=== PATIENT | male | born 1935 | race Caucasian/White ===

== ENCOUNTER 2021-07-12 13:24 | Inpatient (IN) | payer OTHER, BC ==
--- OUTSIDE RECORDS SUMMARY | 2021-07-12 13:27 | XMS REPORT | Continuity of Care Document ---
:1935 Author Organization Formerly [facility] t Address [address] [place] [address] Care Team Providers Name Role Phone MARCELA Attending Clinician Unavailable LUIS Attending Clinician Unavailable Payers Payer Name Policy Type Policy Number Effective Date Expiration Date S rosemarie [facility] [id number] 2015 00:00:00 2024 00:00:00 Problems This patient has no known problems. Allergies, Adverse Reactions, Alerts This patient has no known allergies or adverse reactions. Medications This patient has no known medications. Procedures This patient has no known procedures. Encounters Start End Encounter Admission Attending Care Care Encounter Source Date/Time Date/Time Type Type Clinicians Facility Department ID 2021-06[facility]11 [id number] [place] 09[place]:52 [facility] 2021-03-26 Outpatient MARCELA [facility] [id number] [place] 11:09:33 [facility] 2021-03-25 Outpatient LUIS [facility] [id number] [place] 10:46:10 [facility] 2021-06-26 2021-06-26 Outpatient [facility] [id number] [facility] 11:30:00 11:30:00 2021-06-19 2021-06-19 Outpatient [facility] MED [id number] [facility] 11:27:00 11:27:00 2021-06-13 2021-06-13 Office DONNIE Zaragoza 6400 [id number] 09:35:25 10:26:58 Visit Susan SAM [id number] 2021-04-03 2021-04-03 Outpatient [id number] [facility] 09:04:00 09:04:00 2021-03-28 2021-03-28 Outpatient [facility] [id number] [facility] 14:56:00 14:56:00 2021-03-25 2021-03-25 Office DONNIE Zaragoza 6400 [id number] 09:45:00 10:00:00 Visit Genarojadejuanita PALACIOSN [id number] 2020-12-12 2020-12-12 Outpatient [facility] [id number] [facility] 11:51:00 11:51:00 2020-08-01 2020-08-01 Outpatient [facility] [id number] [facility] 13:44:00 13:44:00 2020-07-02 2020-07-02 Outpatient [facility] [id number] [facility] 12:24:00 12:24:00 Results This patient has no known results.
[2021-07-12 15:44] LABS: Absolute Lymphocytes (CBC) 0.4 K/uL (0.7-4.9); Basophils % 0.3 % (0-1.3); Hematocrit 39.3 % (39.6-49.0); Lymphocytes % 2.4 % (15.3-44.8); MPV 7.9 fL (7.6-11.3); RBC Red Blood Cell Count 3.97 M/uL (4.33-5.43)
[2021-07-12 15:49] LABS: Protime INR 1.34
--- NOTE | 2021-07-12 15:52 | RAD REPORT ---
EXAM DESCRIPTION: RAD - Chest Single View - 07/12/2021 3:23 pm CLINICAL HISTORY: difficulty walking COMPARISON: None TECHNIQUE: AP portable chest image was obtained 07/12/2021 3:23 pm . FINDINGS: Lungs are clear. Lung volumes are low. Scarring or linear atelectasis seen in the lower le ft lung field. Two lead left subclavian pacemaker is present. Heart and vasculature are normal. No me asurable pleural effusion and no pneumothorax. No acute bony abnormality seen. No acute aortic findin gs suspected. IMPRESSION: No acute cardiopulmonary process.
--- NOTE | 2021-07-12 16:16 | RAD REPORT ---
EXAM DESCRIPTION: CT - Head Brain Wo Cont - 07/12/2021 3:50 pm CLINICAL HISTORY: difficulty walking COMPARISON: No comparison imaging available. The report from an outside MRI dated 03/28/2021 was rev iewed. TECHNIQUE: Axial 5 mm thick images of the head were obtained without IV contrast. All CT scans are performed using dose optimization technique as appropriate and may include automated exposure control or mA/KV adjustment according to patient size. FINDINGS: No intracranial hemorrhage is present. Moderate atrophy and chronic ischemic changes are p resent. Ventricles are in proportion to the amount of volume loss. In the left parietal region there is a 4.0 centimeter solid mass lesion that is dural-based. Overlying left parietal craniotomy changes are present. Patient has a known meningioma. The report indicates a 3 centimeter size. The [address] dimension on today's study does not necessarily represent growth over the short interval. Size me asurements very on the modality utilized and the plane of measurement. Growth should not be assumed. There is significant left parietal and posterior frontal vasogenic edema. This is grossly similar to the description on the outside report. No midline shift. No acute cortical based infarction. No abnormal extra-axial fluid collections. 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 That mass cannot be adequately evaluated or celine red on a noncontrast CT study. Mastoid air cells and visualized portions of the paranasal sinuses are clear. No acute bony findings. IMPRESSION: No hemorrhage, midline shift or other emergent intracranial finding. 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 Maximum dimension is 4 cm on today's s tudy with outside report indicating 3 cm. However, interval growth cannot be assumed. Different imagi ng modalities and different planes of measurement can account for this differential. 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 That particular mass cannot be evaluated accurate ly on noncontrast CT imaging.
[2021-07-12 16:18] LABS: ALT/SGPT 43 U/L (12-78); Albumin 3.1 g/dL (3.4-5.0); Alkaline Phosphatase 67 U/L (45-117); BUN Blood Urea Nitrogen 104 mg/dL (7-18); Bicarbonate 18 mmol/L (21-32); Bilirubin Direct 0.1 mg/dL (0-0.2); Bilirubin Total 0.5 mg/dL (0.2-1.0); Glucose Level 105 mg/dL (74-106); NT PRO-BNP 1758 pg/mL (<450); Protein, Total 6.9 g/dL (6.4-8.2); Sodium Level 134 mmol/L (136-145); Troponin (Emerg Dept Use Only) < 0.02 ng/mL (0.0-0.045)
[2021-07-12 16:21] LABS: AST/SGOT 20 U/L (15-37); Magnesium 2.7 mg/dL (1.8-2.4); Potassium 4.4 mmol/L (3.5-5.1)
[2021-07-12] MEDS ORDERED: NA CHLORIDE 0.9% 3,000 ML ONE (16:45)
[2021-07-12] MEDS ORDERED: CEFTRIAXONE/SWI 1gm 1 GM/10 ML SYR ONE (17:33)
[2021-07-12 17:47] LABS: Blood Morphology Comment NOT SEEN (NOT SEEN); Platelet Estimate ADEQ
--- NOTE | 2021-07-12 17:48 | ER ---
Nurse's Notes [facility] Name: Aj Sears Age: 86 yrs Sex: Male : 1935 Arrival Date: 07/12/2021 Time: 14:25 Bed 8 Private MD: Diagnosis: Dehydration;Acute kidney failure, unspecified Presentation: 07/12 14:55 Ebola Screen: Patient denies travel to an Ebola-affected area in the 21 days before ll1 illness onset. 14:55 Method Of Arrival: [facility] 1 14:55 Acuity: GERARDO 3 ll1 14:56 Chief complaint: Patient states: Unable to walk well or get up from toilet since around ll1 noon today. Was using walker earlier in the day for his neurologist appointment this am. No pain or falls. Coronavirus screen: Client denies travel out of the [place] in the last 14 days. At this time, the client does not indicate any symptoms associated with coronavirus-19. Initial Sepsis Screen: Does the patient meet any 2 criteria? No. Patient's initial sepsis screen is negative. Does the patient have a suspected source of infection? No. Patient's initial sepsis screen is negative. Risk Assessment: Do you want to hurt yourself or someone else? Patient reports no desire to harm self or others. Onset of symptoms was July 12, 2021. 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 - Social history:: Smoking status: Patient denies any tobacco usage or history of. Smoking status: . Screenin:35 Abuse screen: Denies threats or abuse. Nutritional screening: No deficits noted. em Tuberculosis screening: No symptoms or risk factors identified. Fall Risk None identified. Assessment: 19:35 General: Appears in no apparent distress. uncomfortable, Behavior is calm, cooperative, em appropriate for age. Pain: Complains of pain in buttocks. Neuro: Level of Consciousness is awake, alert, obeys commands, Oriented to person, place, time, situation. Cardiovascular: Capillary refill < 3 seconds Patient's skin is warm and dry. Respiratory: Airway is patent Respiratory effort is even, unlabored, Respiratory pattern is regular, symmetrical. GI: Reports diarrhea. Derm: Skin is thin, Skin is pink, warm \T\ dry. Musculoskeletal: Range of motion: intact in all extremities. 21:20 Reassessment: Reassessment: BP 72/41, hospitalist notified. em 23:45 Reassessment: initiated Levophed at 5 mcg/min. em Vital Signs: 15:01 Weight 86.18 kg; Height 5 ft. 9 in. (175.26 cm); Pain 0/10; ll1 15:04 Pulse 75; Resp 18; Temp 97.4; Pulse Ox 98% ; ll1 16:15 BP 138 / 60; ll1 20:42 BP 99 / 54; Pulse 95; Resp 78; Pulse Ox 100% on R/A; em 21:12 BP 88 / 45; Pulse 92; Resp 18; Pulse Ox 99% on R/A; em 21:20 BP 72 / 41; Pulse 94; Resp 20; Pulse Ox 99% on R/A; em 21:30 BP 97 / 69; Pulse 91; Resp 16; Pulse Ox 100% on R/A; em 22:02 Temp 98.3(R); em 22:30 BP 78 / 42; em 15:01 Body Mass Index 28.06 (86.18 kg, 175.26 cm) ll1 ED Course: 14:25 Patient arrived in ED. eb 14:54 Arturo Hester PA is PHCP. cp 14:54 Per Baumann MD is Attending Physician. cp 14:55 Ramya Bower, MICHAEL is Primary Nurse. ll1 14:55 Arm band placed on Patient placed in an exam room, on a stretcher. ll1 14:56 Triage completed. ll1 15:23 XRAY Chest (1 view) In Process Unspecified. EDMS 15:42 CT Head Brain wo Cont In Process Unspecified. EDMS 17:47 Hector Soto is Hospitalizing Provider. cp 18:30 CT Abd/Pelvis - Without Contrast In Process Unspecified. EDMS 19:35 Patient has correct armband on for positive identification. Adult w/ patient. em 23:45 Assisted provider with central line placement. Set up central line tray. Triple lumen em line placed in right internal jugular. Line placed by Shravan Gunter MD Placement verified by CXR, Dressed with Tape, Tegaderm, Patient tolerated well. 07/13 03:03 Chest Single View XRAY Sent. bs2 03:04 Stool Culture Sent. bs2 03:04 Rotavirus Antigen Sent. bs2 03:04 CDIFF Sent. bs2 03:05 Rotavirus Antigen Sent. bs2 03:05 Stool Culture Sent. bs2 03:06 Basic Metabolic Panel Sent. bs2 03:06 CBC with Diff Sent. bs2 21:39 Primary Nurse role handed off by Ramya Bower RN tt3 07/14 07:10 Shelton Nicholas, RN is Primary Nurse. [facility] 07/15 19:15 Primary Nurse role handed off by Shelton Nicholas, RN mw2 Administered Medications: 07/12 17:02 Discontinued: NS 0.9% (30 ml/kg) 30 ml/kg IV at bolus once; Sepsis Protocol cp 16:36 Drug: NS 0.9% (30 ml/kg) 30 ml/kg Route: IV; Rate: bolus; Site: right antecubital; [facility] 16:36 Drug: NS 0.9% 1000 ml Route: IV; Rate: 1 bolus; Site: right antecubital; [facility] 18:09 Follow up: Response: No adverse reaction; IV Status: Completed infusion; IV Intake: ll1 1000ml 17:50 Drug: NS 0.9% 1000 ml Route: IV; Rate: 75 ml/hr; Site: right antecubital; [facility] 07/13 03:05 Follow up: IV Status: Infusion continued upon admission [facility] 07/12 18:44 Drug: Rocephin (cefTRIAXone) 1 grams Route: IV; Rate: calculated rate; Site: right ll1 antecubital; 07/13 03:05 Follow up: IV Status: Completed infusion [facility] 07/12 21:15 Drug: Tylenol 650 mg Route: PO; em 07/13 00:24 Follow up: Response: No adverse reaction; Marked relief of symptoms em 07/12 21:35 Drug: NS 0.9% 250 ml Route: IV; Rate: bolus; Site: right antecubital; em 07/13 00:24 Follow up: IV Status: Completed infusion; IV Intake: 250ml em 07/12 23:45 Drug: Levophed (norepinephrine) (4 mg/250 mL D5W 4 mcg/min Route: IV; Rate: calculated em rate; Site: right antecubital; 07/13 03:04 Follow up: IV Status: Infusion continued upon admission bs2 Intake: 07/12 18:09 IV: 1000ml; Total: 1000ml. ll1 07/13 00:24 IV: 250ml; Total: 1250ml. em Outcome: 07/12 17:48 Decision to Hospitalize by Provider. cp 07/15 20:10 Patient left the ED. em Signatures: Dispatcher [employer] EDKieran Anderson RN RN em Arturo Hester PA PA cp Jon King mw2 Vianney Rodriguez Lynsay RN RN ll1 Damian Gupta tt3 Jami Howard RN RN bs2 Shelton Nicholas RN RN ch5
--- NOTE | 2021-07-12 17:49 | EDPHYS ---
Physician Documentation [facility] Name: Aj Sears Age: 86 yrs Sex: Male : 1935 Arrival Date: 07/12/2021 Time: 14:25 Bed 8 Private MD: ED Physician ePr Baumann HPI: 07/12 15:10 This 86 yrs old Male presents to ER via EMS with complaints of Weakness. cp 15:10 The patient's problem is reported as weakness, that is generalized. cp 15:10 Onset: The symptoms/episode began/occurred gradually, and became worse today, EMS cp reports patient was sitting on commode and unable to stand up. Associated signs and symptoms: Pertinent negatives: abdominal pain, chest pain, diaphoresis, headache, vomiting. Severity of symptoms: in the emergency department the symptoms are unchanged despite EMS interventions. Patient's baseline: Neuro: alert and fully oriented, Motor: no deficits, Ambulation: walks with assist only, uses cane, uses walker, Speech: normal. 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 - Social history:: Smoking status: Patient denies any tobacco usage or history of. Smoking status: . ROS: 15:15 Constitutional: Positive for poor PO intake, Negative for body aches, chills, fever. cp 15:15 Cardiovascular: Negative for chest pain. cp 15:15 Eyes: Negative for injury, pain, redness, and discharge. cp 15:15 Respiratory: Negative for cough, shortness of breath, wheezing. 15:15 Abdomen/GI: Negative for abdominal pain, vomiting, diarrhea, constipation. 15:15 Neuro: Positive for weakness, Negative for altered mental status, headache, syncope. 15:15 All other systems are negative. Exam: 15:20 Constitutional: The patient appears in no acute distress, alert, awake, cp non-diaphoretic, non-toxic, well developed, well nourished. 15:20 Head/Face: Normocephalic, atraumatic. cp 15:20 Eyes: Periorbital structures: appear normal, Pupils: equal, round, and reactive to light and accomodation, Extraocular movements: intact throughout, Conjunctiva: normal, no exudate, no injection, Sclera: no appreciated abnormality, Lids and lashes: appear normal, bilaterally. 15:20 ENT: External ear(s): are unremarkable, Nose: is normal, Mouth: Lips: moist, Oral mucosa: moist, Posterior pharynx: Airway: no evidence of obstruction, patent. 15:20 Neck: ROM/movement: is normal, is supple, without pain, no range of motions limitations, no meningismus, no nuchal rigidity. 15:20 Chest/axilla: Inspection: normal, Palpation: is normal, no crepitus, no tenderness. 15:20 Cardiovascular: Rate: normal, Rhythm: regular, Edema: ankle edema, that is mild, JVD: is not appreciated. 15:20 Respiratory: the patient does not display signs of respiratory distress, Respirations: normal, no use of accessory muscles, no retractions, labored breathing, is not present, Breath sounds: are clear throughout, no decreased breath sounds, no stridor, no wheezing. 15:20 Abdomen/GI: Inspection: stoma noted RLQ, Bowel sounds: active, all quadrants, Palpation: abdomen is soft and non-tender, in all quadrants. 15:20 Skin: erythema noted to buttocks. 15:20 Neuro: Orientation: to person, place \T\ time. Mentation: able to follow commands, slow to respond, Motor: strength is 5/5 in the right arm and left arm, strength is 4/5 in the right leg and left leg, Sensation: is normal. 16:08 ECG was reviewed by the Attending Physician. cp Vital Signs: 15:01 Weight 86.18 kg; Height 5 ft. 9 in. (175.26 cm); Pain 0/10; ll1 15:04 Pulse 75; Resp 18; Temp 97.4; Pulse Ox 98% ; ll1 16:15 BP 138 / 60; ll1 20:42 BP 99 / 54; Pulse 95; Resp 78; Pulse Ox 100% on R/A; em 21:12 BP 88 / 45; Pulse 92; Resp 18; Pulse Ox 99% on R/A; em 21:20 BP 72 / 41; Pulse 94; Resp 20; Pulse Ox 99% on R/A; em 21:30 BP 97 / 69; Pulse 91; Resp 16; Pulse Ox 100% on R/A; em 22:02 Temp 98.3(R); em 22:30 BP 78 / 42; em 15:01 Body Mass Index 28.06 (86.18 kg, 175.26 cm) ll1 MDM: 15:00 Patient medically screened. 07/12 15:03 Order name: Basic Metabolic Panel 07/12 15:03 Order name: CBC with Diff 07/12 15:03 Order name: LFT's; Complete Time: 16:30 07/12 16:30 Interpretation: Normal except: ALB 3.1; GLOB 3.8; A/G 0.8. 07/12 15:03 Order name: Magnesium; Complete Time: 16:30 07/12 16:32 Interpretation: Abnormal: MG 2.7. 07/12 15:03 Order name: NT PRO-BNP; Complete Time: 16:30 07/12 15:03 Order name: PT-INR; Complete Time: 16:10 07/12 15:03 Order name: Troponin (emerg Dept Use Only); Complete Time: 16:30 07/12 15:03 Order name: Procalcitonin; Complete Time: 16:54 07/12 15:03 Order name: Lactate; Complete Time: 16:10 07/12 16:11 Interpretation: Abnormal: LAC 3.1. 07/12 15:03 Order name: Urine Microscopic Only 07/12 15:03 Order name: Blood Culture Adult (2) 07/12 15:04 Order name: Basic Metabolic Panel; Complete Time: 16:30 EDMS 07/12 16:31 Interpretation: Normal except: NA 134; CO2 18; BUN 104; CRE 2.04; GFR 31. cp 07/12 15:04 Order name: CBC with Automated Diff; Complete Time: 18:16 EDMS 07/12 15:59 Interpretation: Normal except: WBC 15.80; RBC 3.97; HGB 13.3; HCT 39.3; RDW 17.7; CHERYL% cp 91.4; LYM% 2.4; NEUT A 14.4; LYMA 0.4. 07/12 17:04 Order name: Stool Culture 07/12 17:04 Order name: Rotavirus Antigen 07/12 17:04 Order name: CDIFF 07/12 17:05 Order name: Stool Culture EDMS 07/12 17:05 Order name: Rotavirus Antigen EDMS 07/12 17:47 Order name: Manual Differential; Complete Time: 18:16 EDMS 07/12 18:26 Order name: Urine Dipstick-Ancillary EDMS 07/12 19:10 Order name: Urine Culture EDMS 07/12 20:45 Order name: SARS-COV-2 RT PCR EDMS 07/13 00:55 Order name: Lactate Sepsis 2 HR Follow-up EDMS 07/13 02:37 Order name: Troponin I EDMS 07/13 02:47 Order name: C-Reactive Protein EDMS 07/13 06:15 Order name: CBC with Automated Diff EDMS 07/13 06:17 Order name: Lactate EDMS 07/13 06:22 Order name: Basic Metabolic Panel EDMS 07/13 06:22 Order name: Phosphorus EDMS 07/12 15:03 Order name: CT Head Brain wo Cont; Complete Time: 16:30 cp 07/12 15:03 Order name: XRAY Chest (1 view); Complete Time: 15:59 cp 07/12 17:06 Order name: CT Abd/Pelvis - Without Contrast cp 07/13 00:26 Order name: Chest Single View XRAY em 07/13 06:22 Order name: Magnesium EDMS 07/13 06:24 Order name: Troponin I EDMS 07/13 12:18 Order name: Glucose, Ancillary Testing EDMS 07/13 15:53 Order name: Gram Stain--Aerobic Bottle EDMS 07/13 17:30 Order name: ABG Arterial Blood Gas EDMS 07/14 03:06 Order name: CBC with Automated Diff EDMS 07/14 03:16 Order name: Lactate EDMS 07/14 03:22 Order name: Basic Metabolic Panel EDMS 07/14 03:22 Order name: Phosphorus EDMS 07/14 03:22 Order name: Magnesium EDMS 07/14 08:33 Order name: Glucose, Ancillary Testing EDMS 07/14 18:14 Order name: Vancomycin Level Trough EDMS 07/14 21:16 Order name: Glucose, Ancillary Testing EDMS 07/15 05:08 Order name: Basic Metabolic Panel EDMS 07/15 05:08 Order name: Phosphorus EDMS 07/15 05:08 Order name: Magnesium EDMS 07/15 05:10 Order name: Lactate EDMS 07/15 05:16 Order name: CBC with Automated Diff EDMS 07/15 07:03 Order name: Ur Protein EDMS 07/15 07:05 Order name: UR POTASSIUM EDMS 07/15 07:05 Order name: UR SODIUM EDMS 07/15 07:17 Order name: Osmolality, Urine EDMS 07/15 08:05 Order name: Glucose, Ancillary Testing EDMS 07/15 08:40 Order name: RAD EDMS 07/12 15:03 Order name: EKG; Complete Time: 15:04 cp 07/12 15:03 Order name: Cardiac monitoring; Complete Time: 15:33 cp 07/12 15:03 Order name: EKG - Nurse/Tech; Complete Time: 15:35 cp 07/12 15:03 Order name: IV Saline Lock; Complete Time: 15:33 cp 07/12 15:03 Order name: Labs collected and sent; Complete Time: 15:33 cp 07/12 15:03 Order name: O2 Per Protocol; Complete Time: 15:33 cp 07/12 15:03 Order name: O2 Sat Monitoring; Complete Time: 15:33 cp EC:08 Rate is 84 beats/min. Rhythm is irregular. QRS interval is normal. QT interval is cp normal. T waves are Inverted in lead aVL. Interpreted by me. Reviewed by me. Administered Medications: 17:02 Discontinued: NS 0.9% (30 ml/kg) 30 ml/kg IV at bolus once; Sepsis Protocol cp 16:36 Drug: NS 0.9% (30 ml/kg) 30 ml/kg Route: IV; Rate: bolus; Site: right antecubital; [facility] 16:36 Drug: NS 0.9% 1000 ml Route: IV; Rate: 1 bolus; Site: right antecubital; [facility] 18:09 Follow up: Response: No adverse reaction; IV Status: Completed infusion; IV Intake: ll1 1000ml 17:50 Drug: NS 0.9% 1000 ml Route: IV; Rate: 75 ml/hr; Site: right antecubital; [facility] 07/13 03:05 Follow up: IV Status: Infusion continued upon admission 2 07/12 18:44 Drug: Rocephin (cefTRIAXone) 1 grams Route: IV; Rate: calculated rate; Site: right 1 antecubital; 07/13 03:05 Follow up: IV Status: Completed infusion bs2 07/12 21:15 Drug: Tylenol 650 mg Route: PO; em 07/13 00:24 Follow up: Response: No adverse reaction; Marked relief of symptoms em 07/12 21:35 Drug: NS 0.9% 250 ml Route: IV; Rate: bolus; Site: right antecubital; em 07/13 00:24 Follow up: IV Status: Completed infusion; IV Intake: 250ml em 07/12 23:45 Drug: Levophed (norepinephrine) (4 mg/250 mL D5W 4 mcg/min Route: IV; Rate: calculated em rate; Site: right antecubital; 07/13 03:04 Follow up: IV Status: Infusion continued upon admission bs2 Disposition Summary: 07/12/21 17:48 Hospitalization Ordered Hospitalization Status: Inpatient Admission cp Provider: Hector Soto cp Condition: Stable cp Problem: new cp Symptoms: have improved cp Bed/Room Type: Standard cp Location: [facility] ER HOLD(07/12/21 22:56) Room Assignment: ERHOLD-(07/12/21 22:56) bb Diagnosis - Dehydration cp - Acute kidney failure, unspecified cp Forms: - Medication Reconciliation Form cp - SBAR form cp Addendum: 07/17/2021 10:05 Co-signature as Attending Physician, Per Baumann MD I agree with the assessment and k dr plan of care. Signatures: Dispatcher [employer] EDMS Vita Garrison RN RN Per Baumann MD MD [facility] Kieran Chen RN RN Tiffanie Hdz RN RN bb Arturo Hester PA PA Ramya Bower RN RN ll1 Jami Howard RN bs2 Corrections: (The following items were deleted from the chart) 07/12 19:34 16:19 CORONAVIRUS+MR.LAB.BRZ ordered. EDMS EDMS 21:15 17:48 cp 22:56 17:48 Telemetry/MedSurg (Inpatient) cp 22:56 21:15 212 mw 07/13 01:14 01:13 This 86 yrs old Male presents to ER via EMS with complaints of cp Weakness. cp
[2021-07-12 18:26] LABS: Urine Blood 3+ (Negative); Urine Glucose Negative (Negative); Urine Protein 3+ (Negative); Urine Specific Gravity 1.015 (1.005-1.030)
--- NOTE | 2021-07-12 18:58 | RAD REPORT ---
EXAM DESCRIPTION: CT - Abdomen Pelvis Wo Contrast - 07/12/2021 6:29 pm CLINICAL HISTORY: diarrhea;Abd pain COMPARISON: No comparisonsNo comparisons TECHNIQUE: Axial [address] imaging of the abdomen and pelvis was performed without IV contrast. No IV contrast was given because of allergy, abnormal renal function, patient refusal or physician re quest. No oral contrast administered. All CT scans are performed using dose optimization technique as appropriate and may include automated exposure control or mA/KV adjustment according to patient size. FINDINGS: No suspicious findings in the lung bases. The liver, spleen and pancreas show no suspicious findings on non-contrast imaging. Gallbladder and b iliary tree are also without suspicious finding. A 5.5 cm cyst is present upper pole right kidney. Mild to moderate hydronephrosis of the right renal pelvis present with mild dilatation of the right ureter. Right ureteral stent is in place. There is n o left-sided hydronephrosis. No obstructing or nonobstructing calculi identified. No significant adr enal finding. Isodense renal masses and pyelonephritis cannot be excluded in the absence of IV contra st. Urinary bladder has been resected. 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 There is a 7-8 centimeter diameter hernia at the ostomy site with herniated loops of small bowel. No stomach or small bowel abnormality. There is a moderately large volume of solid stool filling the entirety of the colon. Left-sided colonic stool is hyperdense suggesting the presence of contrast mat erial. It is believed the patient has normal bowel movements per rectum. A colostomy site was not see n in the right mid abdomen. No acute colon process identifiable. No free air, free fluid or inflammatory stranding. No mass or bulky lymphadenopathy. Small fat fille d left inguinal hernia present. Disc and bone degenerative changes are present. Dense arterial tree calcifications are seen. 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 This may be posttraumatic or postsurgical. Patient has numerous surgical clips along the pelvic floor. IMPRESSION: Non-contrast enhanced CT abdomen and pelvis imaging show no acute or emergent finding. Nonacute findings are detailed in the body of the report. Full assessment is limited is the absence of IV contrast.
[2021-07-12 19:09] LABS: Urine Bacteria LOADED /HPF (NONE SEEN); Urine RBC >50 /HPF (NONE SEEN)
[2021-07-12] MEDS ORDERED: ACETAMINOPHEN 325 MG TABLET ONE (21:19)
[2021-07-12] MEDS ORDERED: NOREPINEPHRINE 4mg/D5W 250mL 4 MG/250 ML BAG IV ONE (22:49)
[2021-07-12] MEDS ORDERED: LIDOCAINE 1% MPF 5 ML VIAL ONE (23:21)
[2021-07-13] MEDS ORDERED: ONDANSETRON 4 MG/2 ML VIAL IV PRN (01:10)
[2021-07-13] MEDS ORDERED: NA CHLORIDE 0.9% 1,000 ML IV SCH ×2 (01:10→01:13)
[2021-07-13] MEDS ORDERED: CEFEPIME 1 GM/VIAL IV SCH (01:10)
[2021-07-13] MEDS ORDERED: CEFEPIME/SWI 1gm 10 ML IV SCH (01:10)
[2021-07-13] MEDS ORDERED: Pharmacy Consult 1 EA XX PRN (01:10)
--- NOTE | 2021-07-13 01:48 | P.HP ---
Certification for Inpatient Patient admitted to: Inpatient With expected LOS: >2 Midnights Patient will require the following post-hospital care: Home Health Services Practitioner: I am a practitioner with admitting privileges, knowledge of patient current condition, hospital course, and medical plan of care. Services: Services provided to patient in accordance with Admission requirements found in Title 42 Section 412.3 of the Code of Federal Regulations Patient History Date of Service: 07/12/21 Reason for admission: sepsis History of Present Illness: Mr. Sears is an 86 yo M with CHF (EF 35-40% 05/2021) s/p pacemaker, CAD, vestibular neuroma, prostate ca with urostomy here today for progressive weakness over the last week. Today at noon, he became so weak that family members and neighbor were not able to get him up so they called EMS. Symptoms were initially attributed to the vestibular neuroma but repeat scans show continued improvement and neurology signed off from that standpoint. Granddaughter reports that at baseline he is forgetful and uses a cane and walker, but recently he has declined. Currently lives with his daughter, but they think home health may be necessary. Before admission, patient's MAP began to decline and he flagged sepsis. Granddaughter says he has had frequent admissions for septic shock and required pressors in the past. Daughter says per his theology professor his baseline BP is around 110/60s, and his MAP goal is >65. ED placed central line and began levophed to maintain MAP >65. UA is positive for UTI, but per granddaughter his urologist says that his UAs have been like this since the placement of the stoma. WBC 15.8. NA 134, HCO3 18, BUN 104, Cr 2.04 (baseline 1.5), GFr 31. Lactate 3.1. BMP 1758. procal 0.15. Allergies simvastatin [From Zocor] Allergy (Verified 07/13/21 01:10) Hives - Past Medical/Surgical History -: vestibular neuroma s/p steroids and radiation -: prostate ca -: CHF (EF 35-40% in 05/2021), pacemaker -: CAD s/p stents -: urostomy, stoma, surgery on pelvic bone -: brain surgery -: pacemaker -: cardiac stents -: ureteral stents Psychosocial/ Personal History: lives with daughter. granddaughter is a nurse. - Social History Smoking Status: Never smoker Alcohol use: No CD- Drugs: No Caffeine use: Yes Place of Residence: Home Review of Systems 10-point ROS is otherwise unremarkable General: Weakness Physical Examination - Vital Signs Blood Pressure: 107/86 Pulse: 109 Respirations: 20 Pulse Ox (%): 98 - Physical Exam General: Alert, In no apparent distress, Cooperative, Demented HEENT: Atraumatic, PERRLA, Mucous membr. moist/pink, EOMI, Sclerae nonicteric Neck: Supple, 2+ carotid pulse no bruit, No LAD, Without JVD or thyroid abnormality Respiratory: Clear to auscultation bilaterally, Normal air movement Cardiovascular: No edema, Normal pulses, Regular rate/rhythm, Normal S1 S2, No gallops, No rubs, No murmurs, Other (extremities cool to the touch) Capillary refill: <2 Seconds Gastrointestinal: Normal bowel sounds, No tenderness Musculoskeletal: No tenderness Integumentary: No rashes Neurological: Normal speech, Normal tone, Sensation intact, Dementia Lymphatics: No axilla or inguinal lymphadenopathy Urinary: Urostomy - Studies Laboratory Data (last 24 hrs) 07/12/21 15:25: PT 15.4 H, INR 1.34 07/12/21 15:25: WBC 15.80 H, Hgb 13.3 L, Hct 39.3 L, Plt Count 190 07/12/21 15:25: Sodium 134 L, Potassium 4.4, BUN 104 H, Creatinine 2.04 H, Glucose 105, Magnesium 2.7 H, Total Bilirubin 0.5, AST 20, ALT 43, Alkaline Phosphatase 67 Assessment and Plan - Problems (Diagnosis) (1) Septic shock Current Visit: Yes Status: Acute (2) CHF (congestive heart failure) Current Visit: Yes Status: Chronic Qualifiers: Heart failure type: unspecified Heart failure chronicity: chronic Qualified Code(s): I50.9 - Heart failure, unspecified (3) CAD (coronary artery disease) Current Visit: Yes Status: Chronic Qualifiers: Coronary Disease-Associated Artery/Lesion type: bypass graft [place] vs. transplanted heart: tanana heart Associated angina: without angina Qualified Code(s): I25.810 - Atherosclerosis of coronary artery bypass graft(s) without angina pectoris (4) Acoustic neuroma of both vestibular nerves Current Visit: Yes Status: Chronic (5) TESSY (acute kidney injury) Current Visit: Yes Status: Acute - Plan admitted to ICU continue levophed to maintain MAP >65 gentle IVF hydration, continue broad spectrum IV antibiotics blood and urine cultures pending repeat lactate nephrology consulted for TESSY reconcile and continue home medications set up with home health - PT, OT evaluations before discharge DVT ppx Discharge Plan: Home Plan to discharge in: 72 Hours - Advance Directives Does patient have a Living Will: No Does patient have a Durable POA for Healthcare: No - Code Status/Comfort Care Code Status Assessed: Yes (full code ) Critical Care: No Time Spent Managing Pts Care (In Minutes): 70
[2021-07-13] MEDS ORDERED: CEFEPIME/SWI 1gm 10 ML ONE (01:49)
[2021-07-13] MEDS ORDERED: NA CHLORIDE 0.9% 1,000 ML ONE (01:49)
[2021-07-13] MEDS ORDERED: VANCOMYCIN 1.5 GM in NA CHLORIDE 0.9% 500 ML IVPB SCH (04:00)
--- NOTE | 2021-07-13 04:23 | P.CNS ---
Date of Consult: 07/13/21 Reason for Consult: TESSY Requesting Physician: Neo Cowart Chief Complaint: sepsis History of Present Illness: 86M with PMHx of CKD3b, baseline SCr 1.5 (equiv eGFR 41-42 ml/min), CAD, CHF (LVEF 35-40% 05/2021) s/p PPM/AICD, vestibular neuroma, & prostate ca s/p ileal conduit who presents with a one-week history of progressive generalized weakness, noted to be hypotensive, admitted for sepsis from UTI. He is referred to Nephrology for TESSY. SCr on adm is 2.0. urinalysis showed hematuria dysuria and proteinuria. CT scan of the abdomen and pelvis shows a right renal cyst, right hydronephrosis and right hydroureter with a right ureteral stent in place. His urinary bladder is absent. He has an ileal conduit. He he is receiving IV fluids and is on empiric broad-spectrum antibiotics. He is started on IV vasopressor. He is acidotic with bicarb deficit of about 340 mEq. Allergies simvastatin [From Zocor] Allergy (Verified 07/13/21 01:10) Hives Home Medications: ALPRAZolam [Alprazolam] 1 mg PO 07/13/21 Apixaban [Eliquis] 5 mg PO 07/13/21 Aspirin 81 mg PO 07/13/21 Furosemide [Lasix] 40 mg PO 07/13/21 Lisinopril [Zestril] 2.5 mg PO 07/13/21 Magnesium Oxide 250 mg PO 07/13/21 Metoprolol Tartrate 250 mg PO 07/13/21 Omeprazole [Prilosec] 40 mg PO 07/13/21 dexAMETHasone [Dexamethasone] 2 mg PO 07/13/21 - Past Medical/Surgical History -: vestibular neuroma s/p steroids and radiation -: prostate ca -: CHF (EF 35-40% in 05/2021), pacemaker -: CAD s/p stents -: urostomy, stoma, surgery on pelvic bone -: brain surgery -: pacemaker -: cardiac stents -: ureteral stents Psychosocial/ Personal History: lives with daughter. granddaughter is a nurse. - Social History Alcohol use: No CD- Drugs: No Caffeine use: Yes Place of Residence: Home Review of Systems General: Weakness, Malaise Eyes: Unremarkable ENT: Unremarkable Respiratory: Unremarkable Cardiovascular: Unremarkable Gastrointestinal: Unremarkable Genitourinary: Other (+Urostomy) Musculoskeletal: Atrophy Integumentary: Other (Xerosis) Neurological: Weakness Lymphatics: Unremarkable Physical Examination Temp Pulse Resp BP Pulse Ox 96 H 16 93/69 98 07/13/21 03:00 07/13/21 03:00 07/13/21 03:00 07/13/21 03:00 General: Other (frail looking. Appears acutely ill.) HEENT: Normocephalic Neck: Supple, JVD not distended Respiratory: Other (symmetric chest expansion) Cardiovascular: No rubs, No murmurs Gastrointestinal: Soft and benign, Non-distended, Other (+urostomy) Musculoskeletal: No clubbing Integumentary: No rashes Neurological: Normal speech, Normal tone Lymphatics: No axilla or inguinal lymphadenopathy Urinary: Urostomy, Ileal conduit External genitalia: Deferred Rectal: Deferred Laboratory Data (last 24 hrs) 07/12/21 15:25: PT 15.4 H, INR 1.34 07/12/21 15:25: WBC 15.80 H, Hgb 13.3 L, Hct 39.3 L, Plt Count 190 07/12/21 15:25: Sodium 134 L, Potassium 4.4, BUN 104 H, Creatinine 2.04 H, Glucose 105, Magnesium 2.7 H, Total Bilirubin 0.5, AST 20, ALT 43, Alkaline Phosphatase 67 Conclusions/Impression: # TESSY 2/2 prerenal state + ATN/sepsis from UTI Hx of CKD3b, baseline SCr 1.5 (equiv eGFR 41-42 ml/min) Hx of prostate ca s/p ileal conduit 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 continue IV fluid resuscitation IV vasopressor to maintain MAP > 65 # Septic shock 2/2 UTI F/u UCx & BCx Abx per primary team On Levophed # Acidosis total body water 42.9 L Bicarb deficit 340 meq IV bicarb received today # Hx of CAD, CHF (LVEF 35-40% 05/2021) s/p PPM/AICD Plan to resume diuretics prior to hosp dc # Debility PT/OT
[2021-07-13] MEDS: VANCOMYCIN 1.5 GM in NA CHLORIDE 0.9% 500 ML IVPB SCH (05:57)
[2021-07-13 05:59] LABS: Absolute Lymphocytes (CBC) 0.6 K/uL (0.7-4.9); Basophils % 0.2 % (0-1.3); Hematocrit 33.8 % (39.6-49.0); Lymphocytes % 4.8 % (15.3-44.8); MPV 7.6 fL (7.6-11.3); RBC Red Blood Cell Count 3.41 M/uL (4.33-5.43)
[2021-07-13] MEDS ORDERED: VANCOMYCIN 1 GM/VIAL ONE (06:05)
[2021-07-13] MEDS ORDERED: NA CHLORIDE 0.9% 500 ML ONE ×2 (06:05→14:13)
[2021-07-13 06:15] LABS: Magnesium 2.3 mg/dL (1.8-2.4); Potassium 4.2 mmol/L (3.5-5.1)
[2021-07-13] MEDS ORDERED: PNEUMOCOCCAL VACCINE 0.5 ML IMVAC ONE (08:00)
[2021-07-13] MEDS: FUROSEMIDE 20 MG/ 2ML VIAL IV SCH (09:00)
[2021-07-13] MEDS: ASPIRIN EC 81 MG TAB PO SCH (09:00)
[2021-07-13] MEDS: APIXABAN 5 MG TABLET PO SCH ×2 (09:00→21:00)
[2021-07-13] MEDS: dexAMETHasone 4 MG TAB PO SCH ×2 (09:00→21:00)
[2021-07-13] MEDS ORDERED: FUROSEMIDE 20 MG/ 2ML VIAL ONE (10:00)
[2021-07-13] MEDS ORDERED: ASPIRIN EC 81 MG TAB PO ONE (10:01)
[2021-07-13] MEDS ORDERED: dexAMETHasone 4 MG TAB ONE ×2 (10:01→21:24)
[2021-07-13] MEDS ORDERED: APIXABAN 5 MG TABLET ONE ×2 (10:01→21:24)
[2021-07-13] MEDS ORDERED: ACETAMINOPHEN 325 MG TABLET ONE ×2 (10:01→21:23)
[2021-07-13] MEDS: ACETAMINOPHEN 325 MG TABLET PO PRN ×2 (10:15→21:06)
--- NOTE | 2021-07-13 11:30 | P.PN ---
Subjective Date of Service: 07/13/21 Chief Complaint: sepsis Subjective: Improving (alert, making urine. BP stable. Creatine has improved.) Review of Systems 10-point ROS is otherwise unremarkable General: Weakness Physical Examination - Vital Signs Temperature: 98.2 F Blood Pressure: 105/74 Pulse: 104 Respirations: 17 Pulse Ox (%): 98 - Physical Exam General: Alert HEENT: Atraumatic, PERRLA, EOMI Neck: Supple, JVD not distended Respiratory: Clear to auscultation bilaterally, Normal air movement Cardiovascular: Regular rate/rhythm, Normal S1 S2 Gastrointestinal: Normal bowel sounds, No tenderness Musculoskeletal: No tenderness Integumentary: No rashes Neurological: Normal speech, Normal tone, Normal affect Lymphatics: No axilla or inguinal lymphadenopathy - Studies Laboratory Data (last 24 hrs) 07/12/21 15:25: PT 15.4 H, INR 1.34 07/12/21 15:25: WBC 15.80 H, Hgb 13.3 L, Hct 39.3 L, Plt Count 190 07/12/21 15:25: Sodium 134 L, Potassium 4.4, BUN 104 H, Creatinine 2.04 H, Glucose 105, Magnesium 2.7 H, Total Bilirubin 0.5, AST 20, ALT 43, Alkaline Phosphatase 67 Assessment & Plan - Problems (Diagnosis) (1) Septic shock Current Visit: Yes Status: Acute Plan: will continue fluids and pressors. Will give him gently boluses to get him off the levophed. Awaiting cultures to see if he is on appropriated antibiotics. (2) TESSY (acute kidney injury) Current Visit: Yes Status: Acute Plan: Improving creatine to 1.55. He is making good urine per nursing. (3) Acoustic neuroma of both vestibular nerves Current Visit: Yes Status: Chronic Plan: stable. He has correction follow up (4) CHF (congestive heart failure) Current Visit: Yes Status: Chronic Plan: will need to bolus gentle monitor daily weight and I's and O's Qualifiers: Heart failure type: systolic Heart failure chronicity: chronic Qualified Code(s): I50.22 - Chronic systolic (congestive) heart failure Discharge Plan: Home Plan to discharge in: Greater than 2 days - Code Status/Comfort Care Code Status Assessed: No Physician Review: Patient Assessed, Agree with Above Assessment and Plan Critical Care: Yes Time Spent Managing Pts Care (In Minutes): 30
[2021-07-13] MEDS ORDERED: D5W 1,000 ML with NA BICARB 8.4% 150 MEQ IV SCH ×2 (13:00)
[2021-07-13] MEDS ORDERED: THIAMINE 200 MG/2 ML INJ IVP STA (13:13)
[2021-07-13] MEDS ORDERED: NA CHLORIDE 0.9% 250 ML IV ONE (13:55)
[2021-07-13] MEDS: WATER IV SCH ×2 (14:00)
[2021-07-13] MEDS ORDERED: NA BICARB IV SCH ×2 (14:00)
[2021-07-13] MEDS: DEXTROSE IV SCH ×2 (14:00)
[2021-07-13] MEDS ORDERED: DEXTROSE IV SCH ×2 (14:00)
[2021-07-13] MEDS: NA BICARB IV SCH ×2 (14:00)
[2021-07-13] MEDS ORDERED: WATER IV SCH ×2 (14:00)
[2021-07-13] MEDS: NOREPINEPHRINE 4 MG in D5W 250 ML IV PRN ×3 (14:27)
[2021-07-13] MEDS ORDERED: NA CHLORIDE 0.9% 500 ML IV ONE (15:00)
[2021-07-13] MEDS ORDERED: FENTANYL 25 MCG/PATCH TD ONE ×2 (16:32→17:10)
[2021-07-13 17:29] LABS: Blood Gas Oxyhemoglobin 93.8 % (94-97); Blood O2 Saturation 94.2 % (92-98.5)
[2021-07-13] MEDS ORDERED: THIAMINE 200 MG/2 ML INJ ONE (17:38)
[2021-07-13] MEDS: ALPRAZOLAM 1 MG TABLET PO PRN (21:06)
[2021-07-13] MEDS ORDERED: ALPRAZOLAM 1 MG TABLET ONE (21:23)
[2021-07-13] MEDS ORDERED: NOREPINEPHRINE 4mg/D5W 250mL 4 MG/250 ML BAG IV ONE (22:28)
[2021-07-14] MEDS: DEXTROSE IV SCH ×2 (01:30)
[2021-07-14] MEDS: NA BICARB IV SCH ×2 (01:30)
[2021-07-14] MEDS: WATER IV SCH ×2 (01:30)
[2021-07-14] MEDS ORDERED: SODIUM BICARB 50 MEQ/50ML VIAL ONE (02:45)
[2021-07-14] MEDS ORDERED: D5W 1,000 ML IV ONE (02:45)
[2021-07-14 02:56] LABS: Absolute Lymphocytes (CBC) 0.3 K/uL (0.7-4.9); Basophils % 0.1 % (0-1.3); Hematocrit 30.1 % (39.6-49.0); Lymphocytes % 3.2 % (15.3-44.8); MPV 8.2 fL (7.6-11.3); RBC Red Blood Cell Count 3.08 M/uL (4.33-5.43)
[2021-07-14 03:12] LABS: Magnesium 2.2 mg/dL (1.8-2.4); Phosphorus 2.1 mg/dL (2.5-4.9); Potassium 3.7 mmol/L (3.5-5.1)
--- NOTE | 2021-07-14 05:26 | P.PN ---
Subjective Date of Service: 07/14/21 Chief Complaint: sepsis Subjective: Other (No c/o flank pain, or chills. Had fever last night.) Physical Examination - Vital Signs Temperature: 98.7 F Blood Pressure: 104/52 Pulse: 109 Respirations: 20 Pulse Ox (%): 96 - Physical Exam General: Other (appears as his stated age) HEENT: Normocephalic Neck: Supple Respiratory: Other (symmetric chest expansion) Cardiovascular: Edema Gastrointestinal: Soft and benign, Other (+Urostomy) Musculoskeletal: Swelling Integumentary: No warmth Neurological: Normal tone Urinary: Urostomy, Ileal conduit External genitalia: Deferred Rectal: Deferred Assessment And Plan - Plan # TESSY 2/2 prerenal state + ATN/sepsis from UTI Hx of CKD3b, baseline SCr 1.5 (equiv eGFR 41-42 ml/min) Hx of prostate ca s/p ileal conduit 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 Bonds consulted SCr on adm is 2.0, improved to 1.2 today Urinalysis showed hematuria dysuria and proteinuria CT scan of the abdomen and pelvis shows a right renal cyst, right hydronephrosis and right hydroureter with a right ureteral stent in place. continue IV fluid resuscitation IV vasopressor to maintain MAP > 65 Start Midodrine as below # Septic shock 2/2 UTI UCx +E coli BCx NGTD On Levophed Start Midodrine 10 mg po tid & wean off levophed ABx started via Vanc + Cefepime IV. Cefepime switched to Merrem IV q8H on 07/14 while awaiting culture results. Increase dexamethasone to 6 mg IV daily # Acidosis Improved Total body water 42.9 L Dc IV bicarb # HypoPO4 Neutraphos 2 pkts po ordered for today # Hx of CAD, CHF (LVEF 35-40% 05/2021) s/p PPM/AICD Plan to resume diuretics when shock resolved # Debility PT/OT Physician Review: Patient Assessed, Agree with Above Assessment and Plan
[2021-07-14] MEDS: ASPIRIN EC 81 MG TAB PO SCH (09:00)
[2021-07-14] MEDS: APIXABAN 5 MG TABLET PO SCH ×2 (09:00→20:42)
[2021-07-14] MEDS: dexAMETHasone 4 MG TAB PO SCH (09:00)
[2021-07-14] MEDS: FUROSEMIDE 20 MG/ 2ML VIAL IV SCH (09:00)
[2021-07-14] MEDS ORDERED: dexAMETHasone 4 MG TAB ONE (09:56)
[2021-07-14] MEDS ORDERED: ASPIRIN EC 81 MG TAB PO ONE (09:56)
[2021-07-14] MEDS ORDERED: APIXABAN 5 MG TABLET ONE ×2 (09:56→20:44)
[2021-07-14] MEDS ORDERED: FUROSEMIDE 40 MG/4 ML VIAL ONE (09:57)
[2021-07-14] MEDS ORDERED: NOREPINEPHRINE 4mg/D5W 250mL 4 MG/250 ML BAG IV ONE (10:45)
[2021-07-14] MEDS ORDERED: NOREPINEPHRINE 8 MG in Dextrose 5%-Water 500 ML IV PRN (11:00)
[2021-07-14] MEDS: ACETAMINOPHEN 325 MG TABLET PO PRN ×2 (11:19→20:42)
[2021-07-14] MEDS ORDERED: ACETAMINOPHEN 325 MG TABLET ONE ×2 (11:40→20:44)
--- NOTE | 2021-07-14 12:45 | P.PN ---
Subjective Date of Service: 07/14/21 Chief Complaint: sepsis Subjective: No new changes Review of Systems 10-point ROS is otherwise unremarkable General: Weakness Musculoskeletal: Back Pain Physical Examination - Vital Signs Temperature: 98.7 F Blood Pressure: 104/52 Pulse: 109 Respirations: 20 Pulse Ox (%): 96 - Physical Exam General: Alert, In no apparent distress HEENT: Atraumatic, PERRLA, EOMI Neck: Supple, JVD not distended Respiratory: Clear to auscultation bilaterally, Normal air movement Cardiovascular: Regular rate/rhythm, Normal S1 S2, Edema (2+) Gastrointestinal: Normal bowel sounds, No tenderness Musculoskeletal: No tenderness Integumentary: No rashes Neurological: Normal speech, Normal tone, Normal affect Lymphatics: No axilla or inguinal lymphadenopathy - Studies Microbiology Data (last 24 hrs): 07/12/21 18:15 Clean Catch Urine [place] Count - Final >100,000 CFU/ML. 07/12/21 18:15 Clean Catch Urine - Final Escherichia Coli Assessment & Plan - Problems (Diagnosis) (1) Septic shock Current Visit: Yes Status: Acute Plan: will continue fluids and pressors. Will give him gently boluses to get him off the levophed. Awaiting cultures to see if he is on appropriated antibiotics. 07/14 Patient is still on levophed. Have discussed with Dr. Mittal. Add meropenem and midarone. Will continue fluids and steroids. Will follow up as needed (2) TESSY (acute kidney injury) Current Visit: Yes Status: Acute Plan: Improving creatine to 1.55. He is making good urine per nursing. (3) Acoustic neuroma of both vestibular nerves Current Visit: Yes Status: Chronic Plan: stable. He has intermediate card tender follow up (4) CHF (congestive heart failure) Current Visit: Yes Status: Chronic Plan: will need to bolus gentle monitor daily weight and I's and O's Qualifiers: Heart failure type: systolic Heart failure chronicity: chronic Qualified Code(s): I50.22 - Chronic systolic (congestive) heart failure Discharge Plan: Home Plan to discharge in: Greater than 2 days - Code Status/Comfort Care Code Status Assessed: No Physician Review: Patient Assessed, Agree with Above Assessment and Plan Critical Care: Yes Time Spent Managing Pts Care (In Minutes): 25
[2021-07-14] MEDS ORDERED: POTASS/SODIUM PHOSPHATE 1 PKT POWD.PACK PO ONE (13:00)
[2021-07-14] MEDS: dexAMETHasone 4 MG/ML VIAL IV SCH (13:00)
[2021-07-14] MEDS: Meropenem 500 MG/100 ML BAG IV SCH ×2 (13:00→16:53)
[2021-07-14] MEDS ORDERED: POTASS/SODIUM PHOSPHATE 1 PKT POWD.PACK ONE (13:12)
[2021-07-14] MEDS ORDERED: Meropenem 500 MG/100 ML BAG ONE ×2 (13:13→17:04)
[2021-07-14] MEDS ORDERED: dexAMETHasone 10 MG/ML VIAL ONE (13:13)
[2021-07-14] MEDS: MIDODRINE HCL 5 MG TABLET PO SCH ×2 (14:46→20:42)
[2021-07-14] MEDS: VANCOMYCIN 1.5 GM in NA CHLORIDE 0.9% 500 ML IVPB SCH (18:00)
[2021-07-14] MEDS: ALPRAZOLAM 1 MG TABLET PO PRN (20:42)
[2021-07-14] MEDS ORDERED: ALPRAZOLAM 1 MG TABLET ONE (20:44)
[2021-07-15] MEDS: Meropenem 500 MG/100 ML BAG IV SCH ×3 (00:31→17:00)
[2021-07-15] MEDS ORDERED: NA CHLORIDE 0.9% 100 ML ONE (00:46)
[2021-07-15] MEDS ORDERED: Meropenem 500 MG VIAL IV ONE (00:46)
[2021-07-15 04:58] LABS: Absolute Lymphocytes (CBC) 0.4 K/uL (0.7-4.9); Basophils % 0.1 % (0-1.3); Hematocrit 28.5 % (39.6-49.0); Lymphocytes % 3.4 % (15.3-44.8)
[2021-07-15 05:08] LABS: Magnesium 2.2 mg/dL (1.8-2.4); Phosphorus 2.1 mg/dL (2.5-4.9); Potassium 4.3 mmol/L (3.5-5.1)
[2021-07-15] MEDS ORDERED: POTASS/SODIUM PHOSPHATE 1 PKT POWD.PACK PO ONE (06:00)
[2021-07-15] MEDS ORDERED: POTASS/SODIUM PHOSPHATE 1 PKT POWD.PACK ONE (06:47)
[2021-07-15 07:03] LABS: UR PROTEIN 47.9 mg/dL (<11.9); Urine Protein/Creatinine Ratio 1.33 ratio (<0.15)
[2021-07-15] MEDS: FUROSEMIDE 20 MG/ 2ML VIAL IV SCH (07:27)
[2021-07-15] MEDS ORDERED: ASPIRIN EC 81 MG TAB PO ONE (07:59)
[2021-07-15] MEDS ORDERED: dexAMETHasone 10 MG/ML VIAL ONE (07:59)
[2021-07-15] MEDS ORDERED: APIXABAN 5 MG TABLET ONE (07:59)
[2021-07-15] MEDS: MIDODRINE HCL 5 MG TABLET PO SCH ×2 (08:03→13:56)
[2021-07-15] MEDS: ASPIRIN EC 81 MG TAB PO SCH (08:03)
[2021-07-15] MEDS: dexAMETHasone 4 MG/ML VIAL IV SCH (08:03)
[2021-07-15] MEDS: APIXABAN 5 MG TABLET PO SCH (08:03)
--- NOTE | 2021-07-15 08:40 | RAD REPORT ---
EXAM DESCRIPTION: RAD - Chest Single View - 07/13/2021 12:44 am CLINICAL HISTORY: Central line placement TECHNIQUE: Frontal view of the chest. COMPARISON: Correlation is made with report only from study dated 07/12/2021 at 3: 23 PM FINDINGS: Lungs: Unremarkable. No consolidation. Pleural space: Unremarkable. No pneumothorax. Heart: The cardiac silhouette is enlarged. Mediastinum: Unremarkable. Bones/joints: Multilevel spondylosis. No acute fracture. Vasculature: Thoracic aortic atherosclerosis. Tubes, lines and devices: Left chest wall dual-lead pacer. Right internal jugular central venous catheter tip projects over the distal superior vena cava. IMPRESSION: No acute disease. Electronically signed by: Farhan Beatty MD 07/13/2021 12:54 AM CDT Due to temporary technical issues with the PACS/Fluency reporting system, reports are being signed by the in house radiologist without review as a courtesy to ensure prompt reporting. The interpreting r adiologist is fully responsible for the content of the report.
[2021-07-15 09:35] VITALS: O2SAT 97
[2021-07-15 10:30] VITALS: TEMP 98.9
[2021-07-15] MEDS: ACETAMINOPHEN 325 MG TABLET PO PRN ×2 (11:32→17:37)
[2021-07-15 11:55] VITALS: BMI 27.8
[2021-07-15] MEDS ORDERED: ACETAMINOPHEN 325 MG TABLET ONE ×2 (12:02→18:36)
--- NOTE | 2021-07-15 14:32 | P.DS ---
Admission Date: 07/12/21 Discharge Date: 07/15/21 Reason for Admission: sepsis - Problems (1) Septic shock Current Visit: Yes Status: Acute (2) TESSY (acute kidney injury) Current Visit: Yes Status: Acute (3) Acoustic neuroma of both vestibular nerves Current Visit: Yes Status: Chronic (4) CHF (congestive heart failure) Current Visit: Yes Status: Chronic Qualifiers: Heart failure type: systolic Heart failure chronicity: chronic Qualified Code(s): I50.22 - Chronic systolic (congestive) heart failure Brief History of Present Illness: Patient was admitted for septic shock and chf. The patient has a history of neuroma and osteomy. Hospital Course: Patient was admitted for septic shock. He was started on antibiotics and pressors. Was seen by nephrology. The patients family would like to transfer him to [facility]. The are worried about the weather stranding him. The patient is in the are on his own. The patient does not have any family and they are worried about him getting stranded here on his own. Will try to initiate a transfer. for the patient Vital Signs/Physical Exam: Temp Pulse Resp BP Pulse Ox 98.9 F 92 H 16 112/96 H 97 07/15/21 09:00 07/15/21 11:55 07/15/21 11:55 07/15/21 11:55 07/15/21 11:55 General: Alert, In no apparent distress HEENT: Atraumatic, PERRLA, EOMI Neck: Supple, JVD not distended Respiratory: Clear to auscultation bilaterally, Normal air movement Cardiovascular: Regular rate/rhythm, Normal S1 S2 Gastrointestinal: Normal bowel sounds, No tenderness Musculoskeletal: No tenderness Integumentary: No rashes Neurological: Normal speech, Normal tone, Normal affect Lymphatics: No axilla or inguinal lymphadenopathy Laboratory Data at Discharge: WBC 10.50 K/uL (4.3-10.9) 07/15/21 04:40 Hgb 9.7 g/dL (13.6-17.9) L 07/15/21 04:40 Hct 28.5 % (39.6-49.0) L 07/15/21 04:40 Plt Count 130 K/uL (152-406) L 07/15/21 04:40 PT 15.4 SECONDS (9.5-12.5) H 07/12/21 15:25 INR 1.34 07/12/21 15:25 Sodium 134 mmol/L (136-145) L 07/15/21 04:40 Potassium 4.3 mmol/L (3.5-5.1) 07/15/21 04:40 BUN 53 mg/dL (7-18) H 07/15/21 04:40 Creatinine 0.94 mg/dL (0.55-1.3) 07/15/21 04:40 Glucose 168 mg/dL (74-106) H 07/15/21 04:40 Phosphorus 2.1 mg/dL (2.5-4.9) L 07/15/21 04:40 Magnesium 2.2 mg/dL (1.8-2.4) 07/15/21 04:40 Total Bilirubin 0.5 mg/dL (0.2-1.0) 07/12/21 15:25 AST 20 U/L (15-37) 07/12/21 15:25 ALT 43 U/L (12-78) 07/12/21 15:25 Alkaline Phosphatase 67 U/L (45-117) 07/12/21 15:25 Troponin I 0.02 ng/mL (0.0-0.045) 07/13/21 05:46 Home Medications: ALPRAZolam [Alprazolam] 1 mg PO 07/13/21 Apixaban [Eliquis] 5 mg PO 07/13/21 Aspirin 81 mg PO 07/13/21 Furosemide [Lasix] 40 mg PO 07/13/21 Lisinopril [Zestril] 2.5 mg PO 07/13/21 Magnesium Oxide 250 mg PO 07/13/21 Metoprolol Tartrate 250 mg PO 07/13/21 Omeprazole [Prilosec] 40 mg PO 07/13/21 dexAMETHasone [Dexamethasone] 2 mg PO 07/13/21 Diet: Regular Time spent managing pt's care (in minutes): 25
[2021-07-15] MEDS ORDERED: NOREPINEPHRINE 4mg/D5W 250mL 4 MG/250 ML BAG IV ONE (20:04)
[2021-07-15 20:15] VITALS: BP 99/57
--- NOTE | 2021-07-16 03:41 | PN ---
Date of Progress Note: 07/15/2021 Chief Complaint: TESSY. HPI: The patient remains on pressor. He has sepsis, septic shock. He developed acute kidney injury secondary to prerenal state and ATN secondary to sepsis from UTI. The patient has underlying chronic kidney disease stage 3B. Baseline creatinine level 1.5, estimated GFR 41 to 42. The patient has prostate cancer with ileal conduit. He has history of right obstructive nephropathy with right ureter stent recently exchanged. The patient was seen by Dr. Bonds of Urology. During this admission, serum creatinine slightly has improved in response to treatment with pressors to stabilize blood pressure. Creatinine level improved from 2.0 to 1.2. The patient has lower extremity edema and he has nonoliguric urine output. He remains on low sodium diet. Review of Systems: Denies chest pain or palpitation. Physical Examination: Lungs: Clear to auscultation bilaterally. Heart: S1, S2. Abdomen: Soft. Extremities: Edema 1+ to 2+ in both legs. Impression And Plan: 1. Acute kidney injury secondary to acute tubular necrosis in setting of urosepsis. Continue treatment with pressors for blood pressure support. Continue antibiotics. 2. Urology consultation was requested. The patient had a CT scan done of the abdomen and pelvis without contrast, which showed right renal cyst, right hydronephrosis, and right hydroureter. Continue IV fluid resuscitation. Continue pressors. The patient was started on midodrine as well for blood pressure support. The patient remains on Levophed. 3. The patient is on vancomycin and cefepime. Continue to check vancomycin level. The patient was switched from cefepime to Merrem on July 14. Culture results are pending. 4. Hypophosphatemia. Replacement with Neutra-Phos. 5. Acidosis, improved. The patient was taken off IV bicarbonate. EB/MODL Voice ID: [id number] Report ID: [id number] ROMELIA
[2021-07-16] MEDS ORDERED: FENTANYL 25 MCG/PATCH TD SCH (09:00)
== END 2021-07-15 19:45 | disposition short-term general hospital (02) | DRG 871 ==
LOC: ER 13:24 → ERHOLD 21:30 → 2ND 22:12 → ERHOLD 22:50
PROVIDERS: ADMIT Internal Medicine; ATTEND Internal Medicine
DX: A41.9 Sepsis, unspecified organism (principal); R65.21 Severe sepsis with septic shock; N17.0 Acute kidney failure with tubular necrosis; I50.23 Acute on chronic systolic (congestive) heart failure; N39.0 Urinary tract infection, site not specified; E87.2 Acidosis; N13.8 Other obstructive and reflux uropathy; N13.6 Pyonephrosis; B96.20 Unspecified Escherichia coli [E. coli] as the cause of diseases classified elsewhere; I25.10 Atherosclerotic heart disease of native coronary artery without angina pectoris; R53.81 Other malaise; N18.32 Chronic kidney disease, stage 3b; R31.9 Hematuria, unspecified; D33.3 Benign neoplasm of cranial nerves; E83.39 Other disorders of phosphorus metabolism; Z93.6 Other artificial openings of urinary tract status; Z96.0 Presence of urogenital implants; Z85.46 Personal history of malignant neoplasm of prostate; Z95.5 Presence of coronary angioplasty implant and graft; Z95.0 Presence of cardiac pacemaker; Z20.822 Contact with and (suspected) exposure to COVID-19
CPT/HCPCS: 36415; 70450; 71045; 74176; 80048; 80076; 80202; 81003; 81015; 82570; 82805; 82947; 83605; 83735; 83880; 83935; 84100; 84132; 84145; 84156; 84300; 84484; 85025; 85610; 86140; 87040; 87077; 87086; 87088; 87186; 87205; 93005; 94760; 96361; 96365; 96366; 96367; 96368; 99285; J0692; J0696; J1100; J1940; J2185; J3370; J3411; J7030; J7040; J7060; J8540; U0003